=== PATIENT | female | born 1960 | race Caucasian/White ===

== ENCOUNTER 2016-06-12 19:21 | Emergency (ER) ==
[2016-06-12 19:24] VITALS: BP 131/87; TEMP 99; BMI 28.1
[2016-06-12] MEDS ORDERED: DECADRON 4 MG/ML SDV IM STA (19:45)
[2016-06-12] MEDS ORDERED: DUONEB NEB STA (19:45)
--- NOTE | 2016-06-12 19:49 | ED.PDOC ---
General ED Provider: Dr. ADRIANNE WATERMAN Chief Complaint: Cough Stated Complaint: Been coughing congestion, getting lots of sputum, no fever or chills. no chest pain, not short of breath,. Called PMD and was started on cough syrup and zithromycin, not helping much, Time Seen by Physician: 19:46 Mode of Arrival: Walk-In Information Source: Patient Primary Care Provider: RONNY DEGROOT Nursing and Triage Documentation Reviewed and Agree: Yes Respiratory Complaint Exam - Respiratory Complaint/Exam Symptoms Are: Still present Timing: Constant Initial Severity: Mild Current Severity: Mild Location: Chest Character: Reports: Productive cough Aggravating: Reports: URI Alleviating: Reports: None Associated Signs and Symptoms: Reports: URI, Nasal congestion, Hoarseness, Sinus discomfort, Sore throat. Denies: Rapid breathing, Dyspnea, Fever, Chills , Chest pain, Pleuritic chest pain, Wheezing, Hemoptysis, Dizziness, Calf pain, Calf swelling, Edema, Vomiting, Weight loss, Decreased oral intake, Increased thirst, Increased appetite, Increased urination Related History: Reports: Similar episode History of Healthcare-Acquired Pneumonia: No Related Surgical History: Reports: None Pulmonary Embolism Risk Factors: None Cardiac Risk Factors: Reports: None Pseudomonas Risk Factors: Reports: None Tuberculosis Risk Factors: Reports: None Status Asthmaticus Risk Factors: Reports: None Home Oxygen Use: No Recent Stress Test: No Recent Echo/LV Function: No Current Antibiotic Use: No Current Asthma Medication Use: No Respiratory Distress: None Inadequate Respiratory Effort: No Dysphagia Present: No Stridor Present: No JVD Present: No Accessory Muscle Use: No Retractions: Not Present Diminished Breath Sounds: No Sinus Tenderness: None Grunting Respirations: No Kussmaul Respirations: No Differential Diagnoses: Pneumonia, Bronchitis, URI Review of Systems - Review Of Systems Constitutional: Reports: Malaise Eyes: Reports: No symptoms Ears, Nose, Mouth, Throat: Reports: Nose discharge, Throat pain Respiratory: Reports: Cough Cardiac: Reports: No symptoms GI: Reports: No symptoms : Reports: No symptoms Musculoskeletal: Reports: No symptoms Skin: Reports: No symptoms Neurological: Reports: No symptoms Endocrine: Reports: No symptoms Hematologic/Lymphatic: Reports: No symptoms All Other Systems: Reviewed and Negative Past Medical History - Past Medical History Previously Healthy: No Endocrine: Reports: Dyslipidemia Cardiovascular: Reports: Hypertension Respiratory: Reports: None Hematological: Reports: None Gastrointestinal: Reports: None Genitourinary: Reports: None Neuro/Psych: Reports: None Musculoskeletal: Reports: None Cancer: Reports: None Last Menstrual Period: none - Surgical History General Surgical History: Reports: Other (hemorrhoidectomy.) - Family History Family History: Reports: None - Social History Smoking Status: Never smoker Hx Substance Use: No Alcohol Screening: Occasionally Physical Exam - Physical Exam Appearance: Ill-appearing, Obese Ill-appearing: Mild Eyes: SHASHA, EOMI, Conjunctiva clear ENT: Ears normal, Nose normal, Oropharynx normal Respiratory: Airway patent, Breath sounds clear, Breath sounds equal, Respirations nonlabored Cardiovascular: RRR, Pulses normal, No rub, No murmur GI/: Soft, Nontender, No masses, Bowel sounds normal, No Organomegaly Musculoskeletal: Normal strength, ROM intact, No edema, No calf tenderness Skin: Warm, Dry, Normal color Neurological: Sensation intact, Motor intact, Reflexes intact, Cranial nerves intact, Alert, Oriented Psychiatric: Affect appropriate, Mood appropriate Interpretation - Radiology Interpretation Radiology Interpretation By: ED Physician Radiology Results: Negative Exam Interpreted: CXR Re-Evaluation - Re-Evaluation Time of Re-Evaluation: 20:45 Status: Improved Critical Care Note - Critical Care Note Total Time (mins): 0 Course - Course Orders, Labs, Meds: Lab Review 06/12/16 19:55 Influenza A (Rapid) Negative Influenza B (Rapid) Negative Orders Category Date Time Status NEBULIZER TREATMENT Stat CARDIO 06/12/16 19:46 Ordered MOLECULAR GROUP A STREP Stat LAB 06/12/16 19:55 Results RAPID FLU A/B Stat LAB 06/12/16 19:55 Completed STREP SCREEN Stat LAB 06/12/16 19:55 Results Dexamethasone 4 mg/ml Inj [Decadron 4 mg/ml Sdv] MEDS 06/12/16 19:45 Discontinued 4 mg IM ONCE STA Ipratropium/Albuterol Neb [Duoneb] MEDS 06/12/16 19:45 Discontinued 1 vial NEB ONCE STA CHEST, 2 VIEWS PA & LAT Stat RADS 06/12/16 19:45 Taken Medications Discontinued Medications Generic Name Dose Route Start Last Admin Trade Name Freq PRN Reason Stop Dose Admin Albuterol/Ipratropium 1 vial 06/12/16 19:45 06/12/16 20:09 Duoneb NEB 06/12/16 19:46 1 vial ONCE STA Administration Dexamethasone Sodium Phosphate 4 mg 06/12/16 19:45 06/12/16 19:58 Decadron 4 Mg/Ml Sdv IM 06/12/16 19:46 4 mg ONCE STA Administration Vital Signs: Temp Pulse Resp BP Pulse Ox 06/12/16 19:21 99.0 F 88 20 131/87 96 Departure - Departure Time of Disposition: 20:45 Disposition: HOME SELF-CARE Discharge Problem: URTI (acute upper respiratory infection) Instructions: Upper Respiratory Infection (ED) Condition: Stable Pt referred to PMD for follow-up: Yes Additional Instructions: INCREASE HYDRATION PROBIOTICS STOP Z PACK VOICE REST Prescriptions: Cephalexin [Keflex] 500 mg PO Q12HR #20 capsule Ipratropium/Albuterol Neb [Duoneb] 1 vial NEB RTQ8H #60 vial.neb Prednisone 10 mg PO BIDWM #14 tablet Allergies/Adverse Reactions: Allergies No Known Allergies Allergy (Verified 06/12/16 19:24) Home Medications: Ambulatory Orders Pravastatin Sodium [Pravachol] 40 mg PO DAILY 10/15/13 Bisoprolol Fumarate [Zebeta] 5 mg PO DAILY 06/12/16 Cephalexin [Keflex] 500 mg PO Q12HR #20 capsule 06/12/16 Ipratropium/Albuterol Neb [Duoneb] 1 vial NEB RTQ8H #60 vial.neb 06/12/16 Prednisone 10 mg PO BIDWM #14 tablet 06/12/16 Disposition Discussed With: Patient, Family
[2016-06-12 20:15] LABS: FLU INTERNAL QC INTERNAL QC VALID; RAPID FLU A NEGATIVE (NEGATIVE); RAPID FLU B NEGATIVE (NEGATIVE)
--- NOTE | 2016-06-13 07:34 | DI ---
EXAM: Chest two view, frontal and lateral views. HISTORY: Cough. COMPARISON: None available. FINDINGS: The heart size is normal. There is no pulmonary vascular congestion. The lungs are jose r. No pleural effusion or pneumothorax is seen. No acute osseous abnormality identified. Suspect old left clavicular shaft fracture IMPRESSION: No acute cardiopulmonary process.
== END 2016-06-12 20:53 | disposition home or self-care (01) ==
LOC: ED 19:21
DX: J06.9 Acute upper respiratory infection, unspecified (principal)
CPT/HCPCS: 87651; 87804; 87880; 94640; 96372; 99283

== ENCOUNTER 2017-07-15 07:14 | Day surgery (SDC) ==
[2017-07-15] MEDS ORDERED: LIDOCAINE 1% 20 ML MDV ID STA (07:38)
[2017-07-15] MEDS ORDERED: VERSED ONE (10:13)
[2017-07-15] MEDS ORDERED: DIPRIVAN 20 ML VIAL IVP ONE (10:13)
[2017-07-15] MEDS ORDERED: LIDOCAINE HCL 2% LUER-JET ONE (10:13)
[2017-07-15 12:49] VITALS: BP 118/62; TEMP 97.5
--- NOTE | 2017-07-16 11:47 | OP ---
INDICATIONS FOR PROCEDURE:57 year old female presents with complaining of intermittent dysphagia to solid foods. She is also scheduled for colonoscopy screening examination with a family history of colon polyps involving two primary relatives and second degree relative with colon cancer at an elderly age. MEDICATIONS: SEE ANESTHESIA NOTES. PROCEDURE: 1. ENDOSCOPY/GASTRIC BIOPSY/ESOPHAGEAL BIOPSY/HUNGARIAN DILATATION. 2. COLONOSCOPY/SNARE POLYPECTOMY/SALINE INJECTION/ ENDOCLIP THERAPY REPORT: The risks, benefits, alternatives and limitations were discussed in detail with the patient. Informed consent was obtained. After adequate sedation was achieved, the video endoscope was introduced in the posterior pharynx and esophagus under direct vision and easily advanced down to the second portion of the duodenum. I then slowly withdrew. The duodenal mucosa appeared unremarkable as did the duodenal bulb. The Antrum body is relatively unremarkable. The scope was retroflexed to look at the cardia and fundus which revealed a few small polyps about 4-5mm in size these appeared to be fundic type polyps. I biopsied them for histological review. The scope was anteflexed and withdrawn back through the esophagus at the GE junction there was small mucosal circumferential stricture. It was causing mild lumen narrowing. The biopsied for histological review. The remaining esophagus appeared unremarkable. I advanced the scope back down the gastric lumen I placed the guide wire and withdrew the scope. Over the guidewire I easily advanced a 54 [place]ian [place] Dilator. The patient tolerated the procedure well with stable vital signs and pulse oximetry throughout. The patient's bed was turn and digital rectal exam revealed good tones and masses. Colonoscope was introduced in the rectal and was advanced under direct visual guidance to the cecum. The cecum was identified by the appendiceal orifice and IC valve. At the cecum there was two polyps one was slightly raised and about 6mm in size the other one was flat and had a mucosa cap it was about 12-14mm in size. I removed the small by snare technique and it was retrieved. On the large flat polyp I injected saline underneath to raise it. I then removed this in one piece using a Hexagonal snare. This polyp was successfully retrieved in one pieced. I then closed the polypectomy sight with 3 Endoclips. I withdrew the scope in a circumferential manner and examined the mucosa quite carefully. I was able to retroflex the scope in the right and the left colon to increase visualization. There was a polyp at the hepatic flexure about 7mm size that was removed by snare technique. There was small mouth diverticuli scattered through out the sigmoid colon. No other abnormalities were noted including on retroflex view of the anal canal. The prep was good and the withdraw time was 25 minutes and 17 seconds. The patient tolerated the procedure well with stable vital signs and pulse oximetry throughout. IMPRESSION: 1. Few fundic type polyps present in the gastric lumen 2. Distal esophageal stricture, biopsied and then dilated as above 3. Three colon polyps removed as above 4. Sigmoid diverticulosis RECOMMENDATIONS: 1. Await gastric polyp pathology to confirm benign nature 2. Strict reflux precautions 3. Cut and chew food well 4. Await colon polyp pathology and if everything is benign I suggest repeat colonoscopy examination again no later than 3 years or sooner if there are signs and symptoms to indicate otherwise 5. High fiber diet 6. We will have her come back to the office as needed. 7. She was given phone numbers and mean of contact for complications and the patient was given instructions of signs and symptoms to watch for for post procedure complications. CC: Dr. David CABRAL
== END 2017-07-15 12:00 | disposition home or self-care (01) ==
LOC: SURG 07:14
PROVIDERS: ATTEND Internal Medicine Gastroenterology
DX: Z12.11 Encounter for screening for malignant neoplasm of colon (principal); Z83.71 Family history of colonic polyps; Z80.0 Family history of malignant neoplasm of digestive organs; D12.0 Benign neoplasm of cecum; D12.3 Benign neoplasm of transverse colon; D13.1 Benign neoplasm of stomach; D13.0 Benign neoplasm of esophagus; R13.10 Dysphagia, unspecified; K22.2 Esophageal obstruction; K57.30 Diverticulosis of large intestine without perforation or abscess without bleeding

== ENCOUNTER 2018-08-03 10:38 | Outpatient (CLI) ==
--- NOTE | 2018-08-03 11:46 | DI ---
EXAM: Three views of the left shoulder. History: Left shoulder pain. Findings: No acute fracture or dislocation. Old healed fracture deformity of the left clavicle. Migdalia int spaces are preserved. Impression: No acute osseous abnormality
--- NOTE | 2018-08-03 11:52 | DI ---
EXAM: Five views of the cervical spine. History: Cervical neck pain. Findings: No acute fracture or subluxation of the cervical spine. Reversal of the normal cervical l ordosis. No prevertebral soft tissue swelling. Predental space is not widened. Moderate to severe disc space narrowing at C5-6 and C6-7 with endplate sclerosis and osteophyte formation. Mild disc sp caitlin narrowing seen elsewhere. The oblique images demonstrate multilevel bilateral bony neural forami nal narrowing secondary to uncovertebral and facet hypertrophy and most significant on the left at C3 -4. Impression: 1. No acute osseous abnormality of the cervical spine. 2. Degenerative changes
--- NOTE | 2018-08-03 11:56 | DI ---
EXAM: Three views of the right shoulder. History: Right shoulder pain. Findings: No acute fracture or dislocation. No abnormal calcifications or radiopaque foreign bodies . Joint spaces are preserved. Impression: Unremarkable exam
== END 2018-08-03 10:39 | disposition home or self-care (01) ==
LOC: RAD 10:38
PROVIDERS: ATTEND Internal Medicine
DX: M25.511 Pain in right shoulder (principal); M25.512 Pain in left shoulder; M54.2 Cervicalgia

== ENCOUNTER 2018-08-04 08:00 | Outpatient (RCR) ==
--- NOTE | 2018-07-14 08:41 | RS.OPPTEV2 ---
Date of Note: 07/13/18 Visit #: 1 Number of visits approved by Insurance: 20 visits Date of Evaluation: 07/13/18 Payer Source: Insurance Date of Onset/Injury/Change in Status: 05/27/18 Surgery Performed?: Yes (R peroneal tendon repair, superficial peroneal nerve release) Treatment Diagnosis: R peroneal tendon repair and peroneal nerve release, L shld pain related History of Condition/Mechanism of Injury:: pt reports her pain began last summer and she went through therapy and wore a boot, pt then underwent R peroneal tendon repair, superficial peroneal nerve release on 05/27/18. pt with L shld pain related to use of crutches. Prior Level of Function.....Patient was independent with: ADL's, Self Care, Caregiving, Ambulation/Mobility, Community Integration/Access Level of Function: prior to surgery pt was independent with amb as well as ADL's Functional Limitations: Sleep, Standing, Squatting, Ambulation, Community Access /Integration Current Subjective/complaints:: pt reports she got her cast off last week and now is in boot and WBAT. She reports MD told her for the goal to be walking without boot when she returns to MD 09/07/18. Treatment Side (optional): Right (ankle, L shld) *Precautions: n/a Medical History Medical History: Hypertension Surgical History Comments:: L clavicle fx s/p 3 surgeries to repair 08/2012 Smoking Status: Never smoker Hx Home Medications: pravachol, zebeta, tylenol Patient's Goals: be able to return to active lifestyle: hiking, riding horses Pain Assessment - Pain Description Pain Location: R ankle Pain Description: Aching Current Pain Intensity: 1 at rest, increases to 4-5/10 with ROM Other Comments regarding Pain:: L shld pain 4-5/10 with ROM Functional Outcome Measure LE Functional Scale: 24 - G Codes & Severity Modifier G Codes & Modifier: n/a Source of G Code score: n/a Observation - Observation Inspection: pt with edema RLE especially at R lat malleolus with bruising noted at r lat ankle Posture: Forward Head, Rounded Shoulders Handedness: Right Girth Measurement Lower: R LE: forefoot 24cm, ankle 25.7cm, 10 cm above ankle 28.8cm. L LE: forefoot 23.3cm, ankle 25,2cm, 10 cm above ankle 27.2cm Gait - Gait Pattern General Gait Pattern Observation: Antalgic Gait Gait Comments: pt amb with antalgic gait pattern due to pain R ankle. General Range of Motion: RUE WFL's. LUE WFL's with pain with shld ext and abd. LLE WFL 's. RLE WFL's except ankle Shoulder ROM: Bilaterally WFL's Shoulder Muscle Strength: Right WFL's - Left Shoulder ROM Comments: ROM L shld WFL's with pain with shld ext as well as abd. - Left Shoulder Strength Left Shoulder Flexion: 4+ Good + Left Shoulder Extension: 4 Good Left Shoulder Abduction: 4 Good Left Shoulder Adduction: 4+ Good + Left Shoulder External Rotation: 4 Good Left Shoulder Internal Rotation: 4 Good - Special Tests Shoulder Empty Can (Supraspinatus) Test: Negative Left Shoulder Speed's Sign Test: Negative Left Shoulder Drop Arm Test: Negative Left Comments: pt with tenderness to palpation in area of L biceps insertion Ankle ROM: Left WFL's Ankle Muscle Strength: Left WFL's - Right Ankle ROM Right DF with Knee extension: 6 Right Plantarflexion: 38 Right Eversion: 16 Right Inversion: 10 Right Ankle/Foot ROM Limitations: Soft Tissue Tightness, Muscle Weakness, Pain Comments: pt with pain with R ankle ROM. - Right Ankle Strength Right Dorsiflexion: 3- Fair- Right Plantarflexion: 3- Fair- Right Eversion: 3- Fair- Right Inversion: 3- Fair- Palpation Palpation Findings: Tenderness Comments:: pt with tenderness noted at R lat ankle as well as tenderness to palpation in area of L biceps tendon insertion. Sensation - Sensation Right Upper Extremity: Intact/Normal Left Upper Extremity: Intact/Normal Right Lower Extremity: Impaired Left Lower Extremity: Intact/Normal Comments: pt with numbness and tingling R lat ankle in area of incisions Balance - Sitting Balance Static Sitting Balance: Normal Dynamic Sitting Balance: Normal - Standing Balance Static Standing Balance: Good Dynamic Standing Balance: Good Interventions - Exercise/Activities/Manual Therapy Exercises/Activities: pt performed hamstring stretches RLE, heel cord stretching , isometric R ankle DF, PF, inversion, eversion, Manual Therapy: pt received retrograde massage R ankle. HOME EXERCISE PROGRAM: pt given written HEP including for shld: corner stretch, scapular retraction, upper trap stretch. Then for ankle: isometric inversion, eversion, DF, PF, hamstring stretch, heel cord stretch - Charges Timed Code Treatment Minutes: 52 Total Treatment Time: 61 Procedures billed for this date of service:: sharonda estrada, ex EVALUATION COMPLEXITY LEVEL EVALUATION COMPLEXITY LEVEL: HISTORY: Low (HTN, tendon repair), EXAM OF BODY SYSTEMS: Medium (pain, ROM, strength, gait), CLINICAL PRESENTATION: Low, CLINICAL DECISION MAKING: Low Assessment Assessment: pt presents with edema R ankle, pain in R ankle, L shld, pt with decreased strength/ROM R ankle and L shld, decreased sensation R lat ankle. Feel pt would benefit from skilled PT for therex for strengthening, balance as well as modalities to decrease edema. Patient Education: Home Exercise Program, Education of Plan of Care Rehab Potential: Good Short Term Goals Goal #1: pt rate pain R ankle <4/10 with activity Goal to be met by: 08/03/18 Goal #2: Improve R ankle ROM DF 10, PF 45 Goal to be met by: 08/03/18 Goal #3: Decreased edema R ankle to equal to L Goal to be met by: 08/03/18 Goal #4: Improve strength R ankle DF 3 to 3+/5 Goal to be met by: 08/03/18 Half-Way Goals Goal #1: pt independent with initial HEP Goal to be met by: 08/24/18 Goal #2: pt amb without boot without AD community distances without LOB Goal to be met by: 08/24/18 Goal #3: Improve R ankle ROM WFL's Goal to be met by: 08/24/18 Goal #4: Improve L shld strength 4 to 4+/5 with less pain Goal to be met by: 08/24/18 Plan - Treatment to be Provided Procedures: Therapeutic Exercises, Therapeutic Activity, Gait Training, Manual Therapy, Massage, Patient Education Modalities: Electrical Stimulation, Ultrasound/Phonophoresis, Cryotherapy, Hot Packs - Treatment Plan Frequency: 2 X week Duration: 6 weeks Dates of Half-Way Goals: 08/24/18 Expiration date of current Insurance Approval:: n/a pt does have 20 visits max for year - Treatment Code (1) Right ankle pain Code(s): M25.571 - PAIN IN RIGHT ANKLE AND JOINTS OF RIGHT FOOT Qualifiers: Chronicity: chronic Qualified Code(s): M25.571 - Pain in right ankle and joints of right foot; G89.29 - Other chronic pain (2) Orthopedic aftercare Code(s): Z47.89 - ENCOUNTER FOR OTHER ORTHOPEDIC AFTERCARE (3) Effusion of ankle joint, right Code(s): M25.471 - EFFUSION, RIGHT ANKLE (4) Joint stiffness of right ankle and/or foot Code(s): [id number] - (5) Left shoulder pain Code(s): M25.512 - PAIN IN LEFT SHOULDER Qualifiers: Chronicity: chronic Qualified Code(s): M25.512 - Pain in left shoulder; G89.29 - Other chronic pain
--- NOTE | 2018-07-16 16:17 | RS.OPPTDN ---
Subjective Date of Note: 07/16/18 Visit #: 2 Number of visits approved by Insurance: NA Date of Evaluation: 07/13/18 Payer Source: Insurance Treatment Diagnosis: R peroneal tendon repair and peroneal nerve release, L shld pain related Current Subjective/complaints:: Patient reports swelling and stiffness in the right ankle. Reports left shoulder is sore. Following treatment patient reports increased ankle flexibility and left shoulder pain is less. *Precautions: n/a Pain Assessment - Pain Description Pain Location: Right ankle, Left shoulder Pain Description: Dull, Aching Pain Description: soreness Current Pain Intensity: low - Treatment Modality: Electrical Stim Unattended Parameters/Method Applied: [id number] HVGC to 120 p.v. with 4 small pads to the right ankle with HP prior to MT. Patient Position: Supine - Treatment Modality: Ultrasound Parameters/Method Applied: [id number] at 1.5w/cm2 to the left shoulder joint and upper arm. Patient Position: Supine - Heat/Cryotherapy Treatment: Hot Pack (to right ankle with Estim ) Interventions - Exercise/Activities/Manual Therapy Exercises/Activities: pt performed hamstring stretches RLE, heel cord stretching , isometric R ankle DF, PF, inversion, eversion. PROM of the left shoulder. Total minutes of Exercise: 5mins Manual Therapy: [id number] Retrograde massage to right ankle and lower leg. Passive stretch to the heel cords. Myofascial stretching of the plantar fascitis. Total minutes of Manual Therapy: 15mins HOME EXERCISE PROGRAM: pt given written HEP including for shld: corner stretch, scapular retraction, upper trap stretch. Then for ankle: isometric inversion, eversion, DF, PF, hamstring stretch, heel cord stretch - Charges Timed Code Treatment Minutes: 30mins Total Treatment Time: 50mins Procedures billed for this date of service:: HP, Estim unattended, US, MT Assessment: Patient responds well to addition of modalities with reports of increased flexibility and decreased pain. Patient Education: Body/Joint mechanics, Home Exercise Program Patient demonstrates compliance with HEP?: Yes Short Term Goals Goal #1: pt rate pain R ankle <4/10 with activity Goal to be met by: 08/03/18 Goal #2: Improve R ankle ROM DF 10, PF 45 Goal to be met by: 08/03/18 Progress towards Goal:: Progressing Goal #3: Decreased edema R ankle to equal to L Goal to be met by: 08/03/18 Goal #4: Improve strength R ankle DF 3 to 3+/5 Goal to be met by: 08/03/18 Sliver Lapper Goals Goal #1: pt independent with initial HEP Goal to be met by: 08/24/18 Progress towards goal: Progressing Goal #2: pt amb without boot without AD community distances without LOB Goal to be met by: 08/24/18 Goal #3: Improve R ankle ROM WFL's Goal to be met by: 08/24/18 Goal #4: Improve L shld strength 4 to 4+/5 with less pain Goal to be met by: 08/24/18 Plan Dates of Sliver Lapper Goals: 08/24/18 Expiration date of current Insurance Approval:: 08/24/18 PLAN: Continue modalities and increase therapeutic exercise to return to PLOF.
--- NOTE | 2018-07-21 14:32 | RS.OPPTDN ---
Subjective Date of Note: 07/21/18 Visit #: 3 Number of visits approved by Insurance: 20 visit max Date of Evaluation: 07/13/18 Payer Source: Insurance Treatment Diagnosis: R peroneal tendon repair and peroneal nerve release, L shld pain related Current Subjective/complaints:: Patient reports increased soreness right foot and ankle following last session, but states she is gaining flexibility and swelling is decreasing. Reports left shoulder felt much better following US. *Precautions: n/a Pain Assessment - Pain Description Pain Location: Right foot/ankle and left shoulder Current Pain Intensity: Right foot low, left shoulder mild soreness - Treatment Modality: Electrical Stim Unattended Parameters/Method Applied: [id number] HVGC to 160p.v. with 4 small pads to the right ankle with HP prior to EX. Patient Position: Supine - Treatment Modality: Ultrasound Parameters/Method Applied: [id number] at 1.5w/cm2 to the left shoulder and upper arm. - Heat/Cryotherapy Treatment: Hot Pack (with Estim ) Interventions - Exercise/Activities/Manual Therapy Exercises/Activities: x3mins PROM to the left shoulder and isometric IR and ER. Total minutes of Exercise: 3 Manual Therapy: [id number] Retrograde massage to right ankle and lower leg. Passive stretch to the heel cords. Myofascial stretching of the plantar fascitis. Total minutes of Manual Therapy: 17mins HOME EXERCISE PROGRAM: pt given written HEP including for shld: corner stretch, scapular retraction, upper trap stretch. Then for ankle: isometric inversion, eversion, DF, PF, hamstring stretch, heel cord stretch - Charges Timed Code Treatment Minutes: 30mins Total Treatment Time: 50mins Procedures billed for this date of service:: HP, Estim unattended, US, MT Assessment: Patient responding well to treatment with reports of decreased swelling and increased flexibility. Patient Education: Body/Joint mechanics, Home Exercise Program, Activity Modification Comments: Discussion of HEP, weaning from walking boot, and soaking in Epsom salt and warm water. Patient demonstrates compliance with HEP?: Yes Short Term Goals Goal #1: pt rate pain R ankle <4/10 with activity Goal to be met by: 08/03/18 Goal #2: Improve R ankle ROM DF 10, PF 45 Goal to be met by: 08/03/18 Progress towards Goal:: Progressing Goal #3: Decreased edema R ankle to equal to L Goal to be met by: 08/03/18 Goal #4: Improve strength R ankle DF 3 to 3+/5 Goal to be met by: 08/03/18 Custodial Goals Goal #1: pt independent with initial HEP Goal to be met by: 08/24/18 Progress towards goal: Progressing Goal #2: pt amb without boot without AD community distances without LOB Goal to be met by: 08/24/18 Goal #3: Improve R ankle ROM WFL's Goal to be met by: 08/24/18 Goal #4: Improve L shld strength 4 to 4+/5 with less pain Goal to be met by: 08/24/18 Plan Dates of Custodial Goals: 08/24/18 Expiration date of current Insurance Approval:: 08/24/18 PLAN: Continue modalities and progress exercise to reduce pain and swelling and increase ROM.
--- NOTE | 2018-07-27 09:30 | RS.OPPTDN ---
Subjective Date of Note: 07/24/18 Visit #: 4 Number of visits approved by Insurance: 20 visit max Date of Evaluation: 07/13/18 Payer Source: Insurance Treatment Diagnosis: R peroneal tendon repair and peroneal nerve release, L shld pain related Current Subjective/complaints:: Patient reports ROM of the right ankle seems better. States left shoulder in better, but sore due to slight overuse. States US and ROM exercise are helping. *Precautions: n/a Pain Assessment - Pain Description Pain Location: Right foot/ankle, left shoulder Pain Description: Tightness, Aching Current Pain Intensity: mild - Treatment Modality: Electrical Stim Unattended Parameters/Method Applied: [id number] HVGC to 170p.v. with 4 pads to the right ankle with HP prior to EX and MT. Patient Position: Supine - Treatment Modality: Ultrasound Parameters/Method Applied: [id number] at 1.5w/cm2 to the left shouulder joint prior to EX. Patient Position: Supine - Heat/Cryotherapy Treatment: Hot Pack (with Estim to the right ankle ) Interventions - Exercise/Activities/Manual Therapy Exercises/Activities: [id number] PROM to the left shoulder and isometric flex, ext , add, abd, IR and ER. Yellow theraband for resisted right ankle df, pf, inversion, and eversion. Isometric right ankle df, inversion, and eversion. Total minutes of Exercise: 11mins Manual Therapy: [id number] Retrograde massage to right ankle and lower leg. Passive stretch to the heel cords. Myofascial stretching of the plantar fascitis. Total minutes of Manual Therapy: 15mins HOME EXERCISE PROGRAM: pt given written HEP including for shld: corner stretch, scapular retraction, upper trap stretch. Then for ankle: isometric inversion, eversion, DF, PF, hamstring stretch, heel cord stretch - Charges Timed Code Treatment Minutes: 36mins Total Treatment Time: 56mins Procedures billed for this date of service:: HP, Estim unattended, MT, EX Assessment: Patient progressing with exercise and with reports of reduction in pain. Patient Education: Home Exercise Program Patient demonstrates compliance with HEP?: Yes Short Term Goals Goal #1: pt rate pain R ankle <4/10 with activity Goal to be met by: 08/03/18 Progress towards Goal:: Progressing Goal #2: Improve R ankle ROM DF 10, PF 45 Goal to be met by: 08/03/18 Progress towards Goal:: Progressing Goal #3: Decreased edema R ankle to equal to L Goal to be met by: 08/03/18 Progress towards Goal:: Progressing Goal #4: Improve strength R ankle DF 3 to 3+/5 Goal to be met by: 08/03/18 Side Stitching Machine Operator Goals Goal #1: pt independent with initial HEP Goal to be met by: 08/24/18 Progress towards goal: Progressing Goal #2: pt amb without boot without AD community distances without LOB Goal to be met by: 08/24/18 Goal #3: Improve R ankle ROM WFL's Goal to be met by: 08/24/18 Goal #4: Improve L shld strength 4 to 4+/5 with less pain Goal to be met by: 08/24/18 Plan Dates of Side Stitching Machine Operator Goals: 08/24/18 Expiration date of current Insurance Approval:: 08/24/18 PLAN: Continue modalities, manual therapy, and progress exercise.
--- NOTE | 2018-07-28 14:19 | RS.OPPTDN ---
Subjective Date of Note: 07/28/18 Visit #: 5 Number of visits approved by Insurance: 20 visit max Date of Evaluation: 07/13/18 Payer Source: Insurance Treatment Diagnosis: R peroneal tendon repair and peroneal nerve release, L shld pain related Current Subjective/complaints:: Patient reports improvement in right ankle ROM and in swelling. Reports walking in her home without boot. States left shoulder pain is mainily at superior shoulder joint, and is also improving. *Precautions: n/a Pain Assessment - Pain Description Pain Location: right ankle, lelf shoulder Current Pain Intensity: mild - Treatment Modality: Ultrasound Parameters/Method Applied: [id number] at 1.5w/cm2 to the left shoulder prior to EX. Patient Position: Supine - Treatment Modality: Electrical Stim Unattended Parameters/Method Applied: [id number] HVGC to 170p.v. with 4 small pads to the right ankle with HP prior to EX. Patient Position: Supine - Heat/Cryotherapy Treatment: Hot Pack (to right ankle with Estim) Interventions - Exercise/Activities/Manual Therapy Exercises/Activities: [id number] PROM to the left shoulder and began red theraband for resisted bilateral shoulder ER. Red theraband for resisted right ankle df, pf, inversion, and eversion. Isometric right ankle df, inversion, and eversion. Total minutes of Exercise: 13mins Manual Therapy: [id number] mins Retrograde massage to right ankle and lower leg. Passive stretch to the heel cords. Myofascial stretching of the plantar fascitis. Total minutes of Manual Therapy: 10mins HOME EXERCISE PROGRAM: pt given written HEP including for shld: corner stretch, scapular retraction, upper trap stretch. Then for ankle: isometric inversion, eversion, DF, PF, hamstring stretch, heel cord stretch - Charges Timed Code Treatment Minutes: 33mins Total Treatment Time: 53mins Procedures billed for this date of service:: HP, Estim unattended, US, EX Assessment: Patient reporting progress with pain, swelling, and ambulation. Patient Education: Home Exercise Program Patient demonstrates compliance with HEP?: Yes Short Term Goals Goal #1: pt rate pain R ankle <4/10 with activity Goal to be met by: 08/03/18 Progress towards Goal:: Progressing Goal #2: Improve R ankle ROM DF 10, PF 45 Goal to be met by: 08/03/18 Progress towards Goal:: Progressing Goal #3: Decreased edema R ankle to equal to L Goal to be met by: 08/03/18 Progress towards Goal:: Progressing Goal #4: Improve strength R ankle DF 3 to 3+/5 Goal to be met by: 08/03/18 Progress towards Goal:: Progressing Track Equipment Operator Goals Goal #1: pt independent with initial HEP Goal to be met by: 08/24/18 Progress towards goal: Progressing Goal #2: pt amb without boot without AD community distances without LOB Goal to be met by: 08/24/18 Progress towards goal: Progressing Goal #3: Improve R ankle ROM WFL's Goal to be met by: 08/24/18 Progress towards goal: Progressing Goal #4: Improve L shld strength 4 to 4+/5 with less pain Goal to be met by: 08/24/18 Plan Dates of Residential Goals: 08/24/18 Expiration date of current Insurance Approval:: 08/24/18 PLAN: Continue modalities and progress exercise at tolerable.
--- NOTE | 2018-07-31 15:10 | RS.OPPTDN ---
Subjective Date of Note: 07/31/18 Visit #: 6 Number of visits approved by Insurance: n/a Date of Evaluation: 07/13/18 Payer Source: Insurance Treatment Diagnosis: R peroneal tendon repair and peroneal nerve release, L shld pain related Current Subjective/complaints:: pt reports that her shld was a bit irritated and painful after getting ultrasound last visit. States she feels her ankle is getting better. She states she is working on not wearing the boot most of the day. *Precautions: n/a Pain Assessment - Pain Description Pain Location: R ankle, L shld Pain Description: Aching Current Pain Intensity: R ankle 4/10, L shld 2/10 - Treatment Modality: Electrical Stim Unattended Parameters/Method Applied: x 20 mins HVGC 180 p.v. with 4 small pads to R ankle Treatment Area: R ankle Patient Position: Supine - Heat/Cryotherapy Treatment: Hot Pack Comments:: with estim R ankle Interventions - Exercise/Activities/Manual Therapy Exercises/Activities: pt received PROM to L shld, R ankle resisted DF, PF, IV, EV with red theraband x 2 sets of 10 reps, isometric R ankle DF/PF , IV/EV 2 sets of 10 reps. Total minutes of Exercise: 22 mins Manual Therapy: pt received retrograde massage to R foot/ankle with stretching to R heel cords as well as myofascial stretching of plantar fascia. Total minutes of Manual Therapy: 9 mins HOME EXERCISE PROGRAM: pt given written HEP including for shld: corner stretch, scapular retraction, upper trap stretch. Then for ankle: isometric inversion, eversion, DF, PF, hamstring stretch, heel cord stretch - Charges Timed Code Treatment Minutes: 31 Total Treatment Time: 55 Procedures billed for this date of service:: estim unattended, HP, EX, manual therapy Assessment: pt with improvement with decreased swelling as well as improved R ankle ROM. L shld continues to be somewhat painful with ROM. Patient Education: Home Exercise Program, Education of Plan of Care Patient demonstrates compliance with HEP?: Yes Short Term Goals Goal #1: pt rate pain R ankle <4/10 with activity Goal to be met by: 08/03/18 Progress towards Goal:: Progressing Goal #2: Improve R ankle ROM DF 10, PF 45 Goal to be met by: 08/03/18 Progress towards Goal:: Progressing Goal #3: Decreased edema R ankle to equal to L Goal to be met by: 08/03/18 Progress towards Goal:: Progressing Goal #4: Improve strength R ankle DF 3 to 3+/5 Goal to be met by: 08/03/18 Progress towards Goal:: Progressing Human Resources Benefits Specialist Goals Goal #1: pt independent with initial HEP Goal to be met by: 08/24/18 Progress towards goal: Progressing Goal #2: pt amb without boot without AD community distances without LOB Goal to be met by: 08/24/18 Progress towards goal: Progressing Goal #3: Improve R ankle ROM WFL's Goal to be met by: 08/24/18 Progress towards goal: Progressing Goal #4: Improve L shld strength 4 to 4+/5 with less pain Goal to be met by: 08/24/18 Plan Dates of Human Resources Benefits Specialist Goals: 08/24/18 Expiration date of current Insurance Approval:: 08/24/18 PLAN: plan to continue with therex for strengthening, balance as well as modalities to decrease edema.
--- NOTE | 2018-08-04 12:07 | RS.OPPTDN ---
Subjective Date of Note: 08/04/18 Visit #: 7 Number of visits approved by Insurance: NA Date of Evaluation: 07/13/18 Payer Source: Insurance Treatment Diagnosis: R peroneal tendon repair and peroneal nerve release, L shld pain related Current Subjective/complaints:: Patient reports swelling and joint stiffness is improving. Reports she has discontinued walking boot and is wearing compression socks. Reports discomfort at the superior left shoulder joint is slowly improving. *Precautions: n/a Pain Assessment - Pain Description Pain Location: right ankle, left shoulder joint - Treatment Modality: Electrical Stim Unattended Parameters/Method Applied: [id number] HVGC to 180p.v. with 4 large pads to the right ankle with HP prior to EX. Patient Position: Supine - Treatment Modality: Ultrasound Parameters/Method Applied: [id number] at 1.0w/cm2 to the left shoulder joint and upper arm. - Heat/Cryotherapy Treatment: Hot Pack (with Estim ) Interventions - Exercise/Activities/Manual Therapy Exercises/Activities: PROM to left shoulder and right ankle. Resisted right ankle DF, PF, IV, EV with red theraband. Manually resisted isometric right ankle x4 direction. Passive heelcord stretch. Total minutes of Exercise: [id number] Manual Therapy: pt received retrograde massage to R foot/ankle and lower leg. Myofascial stretching of plantar fascia. Total minutes of Manual Therapy: 7mins HOME EXERCISE PROGRAM: pt given written HEP including for shld: corner stretch, scapular retraction, upper trap stretch. Then for ankle: isometric inversion, eversion, DF, PF, hamstring stretch, heel cord stretch - Charges Timed Code Treatment Minutes: 31mins Total Treatment Time: 51mins Procedures billed for this date of service:: HP, Estim unattended, US, EX Assessment: Patient progressing with reduction in pain and swelling. Reports improvement with ambulation and discharge of walking boot. Patient Education: Home Exercise Program Patient demonstrates compliance with HEP?: Yes Short Term Goals Goal #1: pt rate pain R ankle <4/10 with activity Goal to be met by: 08/03/18 Progress towards Goal:: Progressing Goal #2: Improve R ankle ROM DF 10, PF 45 Goal to be met by: 08/03/18 Progress towards Goal:: Progressing Goal #3: Decreased edema R ankle to equal to L Goal to be met by: 08/03/18 Progress towards Goal:: Progressing Goal #4: Improve strength R ankle DF 3 to 3+/5 Goal to be met by: 08/03/18 Progress towards Goal:: Progressing Shelter Goals Goal #1: pt independent with initial HEP Goal to be met by: 08/24/18 Progress towards goal: Progressing Goal #2: pt amb without boot without AD community distances without LOB Goal to be met by: 08/24/18 Progress towards goal: Met Goal #3: Improve R ankle ROM WFL's Goal to be met by: 08/24/18 Progress towards goal: Progressing Goal #4: Improve L shld strength 4 to 4+/5 with less pain Goal to be met by: 08/24/18 Progress towards goal: Progressing Plan Dates of Forepart Rasper Goals: 08/24/18 Expiration date of current Insurance Approval:: 08/24/18 PLAN: Progress with ROM and strengthening of the right ankle as well as continue treatment to the left shoulder.
== END 2018-08-06 23:59 ==
PROVIDERS: ATTEND Orthopaedic Surgery Foot and Ankle Surgery
DX: Z47.89 Encounter for other orthopedic aftercare (principal)

== ENCOUNTER 2018-08-14 11:00 | Outpatient (RCR) ==
--- NOTE | 2018-08-07 15:43 | RS.OPPTDN ---
Subjective Date of Note: 08/07/18 Visit #: 8 Number of visits approved by Insurance: 20 visit max Date of Evaluation: 07/13/18 Payer Source: Insurance Treatment Diagnosis: R peroneal tendon repair and peroneal nerve release, L shld pain related Current Subjective/complaints:: Patient reports improvement in right ankle swelling and in ROM. States she feels she is walking better, but having pain at the right heel. *Precautions: n/a Pain Assessment - Pain Description Pain Location: right ankle, heel Pain Description: Tightness Current Pain Intensity: mild - Treatment Modality: Electrical Stim Unattended Parameters/Method Applied: [id number] HVGC to 170-180pv 4 pads to the right ankle with HP prior to EX. Patient Position: Supine - Treatment Modality: Ultrasound Parameters/Method Applied: [id number] at 1.5w/cm2 then reduced to pulsed to the left superior shoulder joint. Patient Position: Supine - Heat/Cryotherapy Treatment: Hot Pack (with Estim), Cryotherapy (ended with 5mins ice massage to the right foot planat surface. ) Interventions - Exercise/Activities/Manual Therapy Exercises/Activities: PROM to left shoulder followed by multiple sets of isometric left shoulder IR and ER with arm in different angles of abduction. Resisted right ankle DF, PF, IV, EV with red theraband. Manually resisted isometric right ankle x4 direction. Passive heelcord stretch. Discussed different positions to stretch right heel cords, great toe flexors, and plantar fascia. Total minutes of Exercise: 15mins Manual Therapy: Myofascial stretching of plantar fascia. Total minutes of Manual Therapy: 5mins HOME EXERCISE PROGRAM: pt given written HEP including for shld: corner stretch, scapular retraction, upper trap stretch. Then for ankle: isometric inversion, eversion, DF, PF, hamstring stretch, heel cord stretch - Charges Timed Code Treatment Minutes: 35mins Total Treatment Time: 55mins Procedures billed for this date of service:: HP, Estim unattended, US, EX Assessment: Patient progressing well with strengthening and with gait pattern. Patient Education: Home Exercise Program, Activity Modification Comments: Patient education of benefits of ice massage. Patient demonstrates compliance with HEP?: Yes Short Term Goals Goal #1: pt rate pain R ankle <4/10 with activity Goal to be met by: 08/03/18 Progress towards Goal:: Met Goal #2: Improve R ankle ROM DF 10, PF 45 Goal to be met by: 08/03/18 Progress towards Goal:: Progressing Goal #3: Decreased edema R ankle to equal to L Goal to be met by: 08/03/18 Progress towards Goal:: Progressing Goal #4: Improve strength R ankle DF 3 to 3+/5 Goal to be met by: 08/03/18 Progress towards Goal:: Progressing Digital Advisor Goals Goal #1: pt independent with initial HEP Goal to be met by: 08/24/18 Progress towards goal: Progressing Goal #2: pt amb without boot without AD community distances without LOB Goal to be met by: 08/24/18 Progress towards goal: Met Goal #3: Improve R ankle ROM WFL's Goal to be met by: 08/24/18 Progress towards goal: Progressing Goal #4: Improve L shld strength 4 to 4+/5 with less pain Goal to be met by: 08/24/18 Progress towards goal: Progressing Plan Dates of Digital Advisor Goals: 08/24/18 Expiration date of current Insurance Approval:: 08/24/18 PLAN: Progress with exercise to improve patients functional activity level.
--- NOTE | 2018-08-11 14:10 | RS.OPPTDN ---
Subjective Date of Note: 08/11/18 Visit #: 9 Number of visits approved by Insurance: 30 visit max Date of Evaluation: 07/13/18 Payer Source: Insurance Treatment Diagnosis: R peroneal tendon repair and peroneal nerve release, L shld pain related Current Subjective/complaints:: Patient reports right ankle continues to improve but discomfort at the plantar surface in limiting her walking. States she is consistent with HEP and use of ice. *Precautions: n/a Pain Assessment - Pain Description Pain Location: right ankle, right foot plantar surface - Treatment Modality: Ultrasound Parameters/Method Applied: [id number]. US at 1.0w/cm2 for 7mins and then at Pulsed 1.2w/cm2 for 3mins to the right foot along heel and plantar surface. Patient Position: Supine Interventions - Exercise/Activities/Manual Therapy Exercises/Activities: Discussion of HEP and use of ice/ice bottle on right foot. Heelcord and right plantar fascia stretch during MT. Total minutes of Exercise: 3mins Manual Therapy: [id number] Myofascial stretching of plantar fascia, followed by ice massage. Total minutes of Manual Therapy: 19mins HOME EXERCISE PROGRAM: pt given written HEP including for shld: corner stretch, scapular retraction, upper trap stretch. Then for ankle: isometric inversion, eversion, DF, PF, hamstring stretch, heel cord stretch - Charges Timed Code Treatment Minutes: 34mins Total Treatment Time: 54mins Procedures billed for this date of service:: HP, USCOM, EX Assessment: Patient progressing well with strength and ROM of the right ankle. Heel and plantar fascia pain limit her walking, but are also improving. Patient Education: Home Exercise Program, Home Safety, Activity Modification Patient demonstrates compliance with HEP?: Yes Short Term Goals Goal #1: pt rate pain R ankle <4/10 with activity Goal to be met by: 08/03/18 Progress towards Goal:: Met Goal #2: Improve R ankle ROM DF 10, PF 45 Goal to be met by: 08/03/18 Progress towards Goal:: Progressing Goal #3: Decreased edema R ankle to equal to L Goal to be met by: 08/03/18 Progress towards Goal:: Partially Met Goal #4: Improve strength R ankle DF 3 to 3+/5 Goal to be met by: 08/03/18 Progress towards Goal:: Met Shelter Goals Goal #1: pt independent with initial HEP Goal to be met by: 08/24/18 Progress towards goal: Met Goal #2: pt amb without boot without AD community distances without LOB Goal to be met by: 08/24/18 Progress towards goal: Met Goal #3: Improve R ankle ROM WFL's Goal to be met by: 08/24/18 Progress towards goal: Progressing Goal #4: Improve L shld strength 4 to 4+/5 with less pain Goal to be met by: 08/24/18 Progress towards goal: Progressing Plan Dates of Shelter Goals: 08/24/18 Expiration date of current Insurance Approval:: 08/24/18 PLAN: Progress with strength and ROM to increase ambulation and functional activity level.
--- NOTE | 2018-08-14 15:03 | RS.OPPTDN ---
Subjective Date of Note: 08/14/18 Visit #: 10 Number of visits approved by Insurance: 30 visit max Date of Evaluation: 07/13/18 Payer Source: Insurance Treatment Diagnosis: R peroneal tendon repair and peroneal nerve release, L shld pain related Current Subjective/complaints:: Patient reports right ankle continues to feel stronger and foot/heal pain improving. *Precautions: n/a Pain Assessment - Pain Description Pain Location: right foot and ankle Current Pain Intensity: mild Other Comments regarding Pain:: heel pain mild to mod, but improving - Treatment Modality: Ultrasound Parameters/Method Applied: [id number] at 1.5w/cm2 to the right foot plantar surface prior to EX. Patient Position: Supine - Heat/Cryotherapy Treatment: Hot Pack ([id number] to the right foot and ankle prior to US and MT. Patient in supine. ) Interventions - Exercise/Activities/Manual Therapy Exercises/Activities: Isometrics for right ankle inv, ever, DF, and PF. Heelcord stretching. Total minutes of Exercise: 7mins Manual Therapy: [id number] Myofascial stretching of plantar fascia, ended with ice massage. Total minutes of Manual Therapy: 19mins HOME EXERCISE PROGRAM: pt given written HEP including for shld: corner stretch, scapular retraction, upper trap stretch. Then for ankle: isometric inversion, eversion, DF, PF, hamstring stretch, heel cord stretch - Charges Timed Code Treatment Minutes: 36mins Total Treatment Time: 51mins Procedures billed for this date of service:: HP, US, MT Assessment: Patient continues to report goos response to treatment and appears to be consistently working on HEP. Patient Education: Home Exercise Program Patient demonstrates compliance with HEP?: Yes Short Term Goals Goal #1: pt rate pain R ankle <4/10 with activity Goal to be met by: 08/03/18 Progress towards Goal:: Met Goal #2: Improve R ankle ROM DF 10, PF 45 Goal to be met by: 08/03/18 Progress towards Goal:: Partially Met Goal #3: Decreased edema R ankle to equal to L Goal to be met by: 08/03/18 Progress towards Goal:: Partially Met Goal #4: Improve strength R ankle DF 3 to 3+/5 Goal to be met by: 08/03/18 Progress towards Goal:: Met Residential Care Officer Goals Goal #1: pt independent with initial HEP Goal to be met by: 08/24/18 Progress towards goal: Met Goal #2: pt amb without boot without AD community distances without LOB Goal to be met by: 08/24/18 Progress towards goal: Met Goal #3: Improve R ankle ROM WFL's Goal to be met by: 08/24/18 Progress towards goal: Met Goal #4: Improve L shld strength 4 to 4+/5 with less pain Goal to be met by: 08/24/18 Progress towards goal: Progressing Plan Dates of Fdc Goals: 08/24/18 Expiration date of current Insurance Approval:: 08/24/18 PLAN: Continue modalities, manual therapy, and progressive strengthening to increase patients functional activity level.
--- NOTE | 2018-08-27 08:52 | RS.QUICKDC ---
Discharge from PT Date of Discharge: 08/27/18 Number of Visits: 10 Reason for Discharge: Patient consistently attended therapy and reported progress with right foot/ankle strength and ROM, as well as functional activity level. She asked to hold therapy a few days to make sure she could continue HEP and manage progress independently. She called this department this week to report she was doing well and would continue HEP with discharge at this time. Please refer to last daily note for specifics of treatment and progress with goals. Discharge with HEP.
== END 2018-09-06 23:59 ==
PROVIDERS: ATTEND Orthopaedic Surgery Foot and Ankle Surgery
DX: Z47.89 Encounter for other orthopedic aftercare (principal); M25.571 Pain in right ankle and joints of right foot; M25.471 Effusion, right ankle; M25.512 Pain in left shoulder; G89.29 Other chronic pain

== ENCOUNTER 2018-09-21 09:00 | Outpatient (RCR) ==
--- NOTE | 2018-09-14 14:18 | RS.OPPTEV2 ---
Date of Note: 09/14/18 Visit #: 1 Number of visits approved by Insurance: pending Date of Evaluation: 09/14/18 Payer Source: Insurance Date of Onset/Injury/Change in Status: 05/27/18 Surgery Performed?: Yes (R peroneal tendon repair, superficial peroneal nerve release) Treatment Diagnosis: R ankle and foot pain History of Condition/Mechanism of Injury:: pt then underwent R peroneal tendon repair, superficial peroneal nerve release on 05/27/18. Underwent PT after surgery. pt went to see MD recently and received order for PT. Prior Level of Function.....Patient was independent with: ADL's, Self Care, Caregiving, Ambulation/Mobility, Community Integration/Access Level of Function: pt independent with amb/ADL's Functional Limitations: Sleep, Standing, Squatting, Ambulation, Community Access /Integration Current Subjective/complaints:: pt states she has been doing HEP given to her by PT on last visit. pt states she was walking a mile per day and MD told her she should stop. States MD was upset because she had taken the boot off before 6 weeks, however pt states office told her to wean off of boot. Treatment Side (optional): Right (ankle/foot) *Precautions: n/a Medical History Medical History: Hypertension Surgical History Comments:: L clavicle fx s/p 3 surgeries to repair 08/2012, tendon repair R ankle 05/27/18. Smoking Status: Never smoker Hx Home Medications: pravachol, zebeta, tylenol Patient's Goals: Decrease R ankle/foot pain and return to normal activities. Pain Assessment - Pain Description Pain Location: R heel/arch of foot Pain Description: Burning, Aching, Chronic Current Pain Intensity: 4-5/10 Other Comments regarding Pain:: R ankle at rest 0/10, with inversion/eversion 2/ 10 Functional Outcome Measure LE Functional Scale: 62 - G Codes & Severity Modifier G Codes & Modifier: n/a Source of G Code score: n/a Observation - Observation Posture: Forward Head, Rounded Shoulders Handedness: Right Girth Measurement Lower: R ankle : 23.5cm, forefoot 23.2cm, 10 cm above ankle 27.4cm. L ankle: 23.5cm, forefoot 23cm, 10 cm above ankle 30cm Gait - Gait Pattern Gait Comments: pt amb without antalgic gait pattern with slight decreased heel strike on the RLE. General Range of Motion: BUE WFL's. LLE WFL's. R hip and knee WFL's Muscle Strength: BUE 5/5. LLE 5/5. R hip and knee 5/5 Ankle ROM: Left WFL's Ankle Muscle Strength: Left WFL's - Right Ankle ROM Right DF with Knee extension: 9 Right Plantarflexion: 48 Right Eversion: 20 Right Inversion: 31 Right Ankle/Foot ROM Limitations: Soft Tissue Tightness, Muscle Weakness, Pain - Right Ankle Strength Right Dorsiflexion: 4+ Good + Right Plantarflexion: 4+ Good + Right Eversion: 4+ Good + Right Inversion: 4+ Good + Palpation Palpation Findings: Tenderness Comments:: mild tenderness noted to R lat ankle incision. Sensation - Sensation Right Upper Extremity: Intact/Normal Left Upper Extremity: Intact/Normal Right Lower Extremity: Intact/Normal Left Lower Extremity: Intact/Normal Balance - Sitting Balance Static Sitting Balance: Normal Dynamic Sitting Balance: Normal - Standing Balance Static Standing Balance: Good Dynamic Standing Balance: Good - Treatment Modality: Ultrasound Parameters/Method Applied: 1.5w/cm2 x 7 mins Treatment Area: R plantar surface and heel Patient Position: Sitting Interventions - Exercise/Activities/Manual Therapy Exercises/Activities: pt performed standing heel raises, as well as balance unilateral standing on foam Manual Therapy: n/a. HOME EXERCISE PROGRAM: pt given written HEP including for shld: corner stretch, scapular retraction, upper trap stretch. Then for ankle: isometric inversion, eversion, DF, PF, hamstring stretch, heel cord stretch - Charges Timed Code Treatment Minutes: 52 Total Treatment Time: 61 Procedures billed for this date of service:: eval low, ultrasound EVALUATION COMPLEXITY LEVEL EVALUATION COMPLEXITY LEVEL: HISTORY: Low, EXAM OF BODY SYSTEMS: Medium, CLINICAL PRESENTATION: Low, CLINICAL DECISION MAKING: Low Assessment Assessment: pt presents with decreased strength R LE DF/PF, EV/IV. pt also with decreased ROM R ankle. pt with mild pain in R ankle/foot. Feel pt would benefit from skilled PT for therex for LE stengthening, balance as well as strengthening. Patient Education: Home Exercise Program, Education of Plan of Care Rehab Potential: Good Short Term Goals Goal #1: pt independent with HEP Goal to be met by: 09/25/18 Goal #2: Improve R ankle ROM DF 15, PF 55, Goal to be met by: 09/25/18 Goal #3: Improve R ankle strength DF/PF, IV/EV 5/5 Goal to be met by: 09/25/18 Goal #4: pt rate pain < 4/10 with activity Goal to be met by: 09/25/18 Senior Care Goals Goal #1: pt with ROM WFL's with less pain Goal to be met by: 10/02/18 Goal #2: R ankle ROM WFL's Goal to be met by: 10/02/18 Goal #3: pt able to return to normal daily activities w less pain Goal to be met by: 10/02/18 Goal #4: . 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
--- NOTE | 2018-09-21 11:30 | RS.OPPTDN ---
Subjective Date of Note: 09/21/18 Visit #: 2 Number of visits approved by Insurance: na Date of Evaluation: 09/14/18 Payer Source: Insurance Treatment Diagnosis: R ankle and foot pain Current Subjective/complaints:: Patient reports doing well with HEP. States she feels she can continue progressive strengthening. Reports right foot plantar fascitis is bothering her but getting better. Patient agrees she will work on HEP and contact this department if she needs to attend next week. *Precautions: n/a Pain Assessment - Pain Description Pain Location: right plantar fascia Current Pain Intensity: mild Other Comments regarding Pain:: Reports little to no discomfort right ankle - Treatment Modality: Ultrasound Parameters/Method Applied: [id number] at 1.5w/cm2 to the right foot plantar surface. Patient Position: Sitting Interventions - Exercise/Activities/Manual Therapy Exercises/Activities: Passive ROM of the right ankle and stretching of heel cords. Pt performed standing heel raises. Leg press at 60# for ankle df, 40reps slow pace. Black theraband for resisted pf. Isometric ankle df, pf, inversion, and eversion. Total minutes of Exercise: 15mins Manual Therapy: [id number] Soft tissue massage to the plantar surface of foot and along the heel cords. Myofascial release of the plantar fascia. Total minutes of Manual Therapy: 14mins HOME EXERCISE PROGRAM: pt given written HEP including for shld: corner stretch, scapular retraction, upper trap stretch. Then for ankle: isometric inversion, eversion, DF, PF, hamstring stretch, heel cord stretch - Charges Timed Code Treatment Minutes: 39mins Total Treatment Time: 44mins Procedures billed for this date of service:: EX, US, MT Assessment: Patient consistently working on HEP and feels she can continue. Will reassess progress next week. Patient Education: Body/Joint mechanics, Home Exercise Program Patient demonstrates compliance with HEP?: Yes Short Term Goals Goal #1: pt independent with HEP Goal to be met by: 09/25/18 Progress towards Goal:: Met Goal #2: Improve R ankle ROM DF 15, PF 55, Goal to be met by: 09/25/18 Progress towards Goal:: Progressing Goal #3: Improve R ankle strength DF/PF, IV/EV 5/5 Goal to be met by: 09/25/18 Progress towards Goal:: Progressing Goal #4: pt rate pain < 4/10 with activity Goal to be met by: 09/25/18 Progress towards Goal:: Progressing Care Connector Goals Goal #1: pt with ROM WFL's with less pain Goal to be met by: 10/02/18 Progress towards goal: Progressing Goal #2: R ankle ROM WFL's Goal to be met by: 10/02/18 Progress towards goal: Progressing Goal #3: pt able to return to normal daily activities w less pain Goal to be met by: 10/02/18 Goal #4: . Plan Dates of Care Connector Goals: 10/02/18 Expiration date of current Insurance Approval:: 10/02/28 PLAN: Violetta will assess her progress next week and contact this department if she feels the need to reschedule.
== END 2018-10-06 23:59 ==
PROVIDERS: ATTEND Orthopaedic Surgery Foot and Ankle Surgery
DX: M72.2 Plantar fascial fibromatosis (principal); Z47.89 Encounter for other orthopedic aftercare; M25.571 Pain in right ankle and joints of right foot; G89.29 Other chronic pain

== ENCOUNTER 2019-12-13 10:34 | Observation (INO) ==
[2019-12-13] MEDS ORDERED: TORADOL IM STA (11:02)
[2019-12-13] MEDS ORDERED: SODIUM CHLORIDE 1,000 ML IV STA (11:02)
[2019-12-13 11:22] LABS: HEMATOCRIT 44.6 % (37.0-47.0)
--- NOTE | 2019-12-13 11:57 | CT ---
EXAM: CT Abdomen without contrast. CT Pelvis without contrast. HISTORY: Left costovertebral angle pain, tenderness. COMPARISON: None available. TECHNIQUE: Multiple axial images of the abdomen and pelvis were obtained without intravenous contras t. Images were reformatted in the sagittal and coronal plane. FINDINGS: Please note that evaluation of the abdominal and pelvic structures is limited due to lack of intravenous contrast. Trace pleural effusions noted bilaterally. Degenerative changes present in the spine, greatest at L4-5. The liver is normal. Gallbladder is not well distended. The spleen, pancreas, and adrenal glands ap pear normal. No calcified renal stones, hydronephrosis or perinephric inflammation identified. No ureteral or donal dder calculi are seen. Bladder appears normal. Phleboliths noted in the pelvis. There is no evidence for bowel obstruction. Colonic diverticulosis noted. The appendix is normal. Small fat-containing umbilical hernia noted. No free fluid or free air detected. Atherosclerotic ca lcifications are present. IMPRESSION: 1. No acute abnormality in the abdomen or pelvis.. 2. Diverticulosis. 3. Trace bilateral pleural effusions.
[2019-12-13] MEDS ORDERED: ROBAXIN PO SCH (15:00)
--- NOTE | 2019-12-13 15:24 | ED.PDOC ---
General ED Provider: Dr. ASHLEY HOLLY MD Chief Complaint: Back Pain Stated Complaint: right low back pain x 5 days. also pulse has been low. started new beta-bear med last week Time Seen by Physician: 10:45 Mode of Arrival: Walk-In Information Source: Patient Exam Limitations: No limitations Primary Care Provider: RONNY DEGROOT Nursing and Triage Documentation Reviewed and Agree: Yes Does patient meet sepsis criteria?: No System Inflammatory Response Syndrome: Not Applicable Sepsis Protocol: For patient's 13 years and over: Temp is 96.8 and below OR 101 and greater Pulse >90 BPM Resp >20/minute Acutely Altered Mental Status Are patient's symptoms suggestive of a new infection, such as: -Pneumonia -Skin, Soft Tissue -Endocarditis -UTI -Bone, Joint Infection -Implantable Device -Acute Abdominal Infection -Wound Infection -Meningitis -Blood Stream Catheter Infection -Unknown Musculoskeletal Complaint Exam Back Pain Complaint/Exam Mechanism of Injury: Reports No known trauma Onset/Duration: 5 days ago Symptoms Are: Still present Episodes Lasting: Hours Initial Severity: Moderate Current Severity: Mild Location: Reports Discrete (left lower back ) Character: Reports Dull and Aching Aggravating: Reports Movements Alleviating: Reports Rest Related History: Reports Previous back injury (prior right sciatica.) Focal Tenderness: No Paraspinal Muscle Tenderness: Yes Paraspinal Muscle Spasm: Yes Scoliosis: No Lordosis: No Kyphosis: No Focal Weakness: Present None Focal Sensory Loss: Present None Gait: Present Normal Differential Diagnoses: Herniated Disk, Renal Colic, Strain and Sprain Review of Systems Review Of Systems Constitutional: Reports No symptoms Eyes: Reports No symptoms Ears, Nose, Mouth, Throat: Reports No symptoms Respiratory: Reports No symptoms Cardiac: Reports No symptoms GI: Reports No symptoms : Reports No symptoms Musculoskeletal: Reports Back pain and Muscle pain Skin: Reports No symptoms Neurological: Reports No symptoms Endocrine: Reports No symptoms Hematologic/Lymphatic: Reports No symptoms All Other Systems: Reviewed and Negative FORMERLY [facility] Medical History (Updated 12/13/19 @ 15:26 by IVAN FARRIS RN) H/O: Social History Smoking and tobacco status: Never smoker Female Reproductive History Menstrual Hx Hysterectomy: Yes Hx Tubal Ligation: No Physical Exam Physical Exam Appearance: Reports Well-appearing Pain Distress: Mild Eyes: Reports SHASHA, EOMI and Conjunctiva clear ENT: Reports Ears normal, Nose normal and Oropharynx normal Neck: Supple Respiratory: Reports Airway patent, Breath sounds clear and Breath sounds equal Cardiovascular: Reports RRR and Bradycardia (pt had pulses 0f 36, 42, 47. she was asymptomatic) GI/: Reports Soft, Nontender, No masses, Bowel sounds normal and No Organomegaly Musculoskeletal: Reports Normal strength, ROM intact, No edema, No calf tenderness and Other (minimally tender left upper buttock on deep palpation. ) Skin: Reports Warm, Dry and Normal color Neurological: Reports Sensation intact, Motor intact, Reflexes intact and Cr anial nerves intact Psychiatric: Reports Mood appropriate Interpretation Radiology Interpretation Radiology Interpretation By: Radiologist Radiology Results: Positive (minimal pleural effusions.) Re-Evaluation Re-Evaluation Time of Re-Evaluation: 11:41 Status: Improved Vital Signs Stable: No (bradycardia was persistent.) Pain Level: 1 Appearance: NAD Lungs: Clear Skin: Warm and Dry Neuro: Alert and Oriented X3 CV: RRR Physician Notification Case Discussed Physician Notified: Dr Degroot Time of Notification: 13:20 Endorsed To/Discussed With: Pt was d/w Dr Degroot who will admit the pt to Observation Admit/Transition Orders Entered by ED Provider: Yes Reviewed With: Dr Degroot Admit To: Observation Critical Care Note Critical Care Note Total Time (mins): 0 Course Course Hematology/Chemistry: 12/13/19 11:16 12/13/19 11:16 Orders, Labs, Meds: Lab Review 12/13/19 12/13/19 12/13/19 11:06 11:16 11:16 WBC 6.01 RBC 4.86 Hgb 15.3 Hct 44.6 MCV 91.8 MCH 31.5 H MCHC 34.3 RDW Coeff of Charlie 12.1 Plt Count 182 Immature Gran % (Auto) 0.3 Neut % (Auto) 67.7 Lymph % (Auto) 22.8 [place] % (Auto) 6.3 Eos % (Auto) 2.2 Baso % (Auto) 0.7 Neut # (Auto) 4.1 Lymph # (Auto) 1.4 [place] # (Auto) 0.4 Eos # (Auto) 0.1 Baso # (Auto) 0.0 Immature Gran # (Auto) 0.0 Sodium 136.2 Potassium 4.69 Chloride 103.1 Carbon Dioxide 25.5 Anion Gap 12.29 BUN 17.6 H Creatinine 1.12 Estimated GFR (MDRD) 50.00 BUN/Creatinine Ratio 15.71 Glucose 105.7 Calcium 9.99 Total Bilirubin 0.57 AST 29.2 ALT 23.8 Alkaline Phosphatase 70.2 Troponin I < 0.012 NT-Pro-B Natriuret Pep Total Protein 7.34 Albumin 4.43 Globulin 2.91 Albumin/Globulin Ratio 1.52 Urine Color Yellow Urine Clarity Clear Urine pH 5.5 Ur Specific [place] 1.010 Urine Protein Negative Urine Glucose (UA) Negative Urine Ketones Negative Urine Blood Negative Urine Nitrite Negative Urine Bilirubin Negative Urine Urobilinogen 0.2 Ur Leukocyte Esterase Negative 12/13/19 11:16 WBC RBC Hgb Hct MCV MCH MCHC RDW Coeff of Charlie Plt Count Immature Gran % (Auto) Neut % (Auto) Lymph % (Auto) [place] % (Auto) Eos % (Auto) Baso % (Auto) Neut # (Auto) Lymph # (Auto) [place] # (Auto) Eos # (Auto) Baso # (Auto) Immature Gran # (Auto) Sodium Potassium Chloride Carbon Dioxide Anion Gap BUN Creatinine Estimated GFR (MDRD) BUN/Creatinine Ratio Glucose Calcium Total Bilirubin AST ALT Alkaline Phosphatase Troponin I NT-Pro-B Natriuret Pep 269.000 H Total Protein Albumin Globulin Albumin/Globulin Ratio Urine Color Urine Clarity Urine pH Ur Specific [place] Urine Protein Urine Glucose (UA) Urine Ketones Urine Blood Urine Nitrite Urine Bilirubin Urine Urobilinogen Ur Leukocyte Esterase Orders Category Date Time Status ADMIT OBSERVATION [PLACE PATIENT OBSERVATION] .TO ADMISSION 12/13/19 14:12 Active MEDSURG (MONITORED BED) EKG-(ED ONLY) Stat CARDIO 12/13/19 11:02 Completed EKG-(IP & OP ONLY) DAILY CARDIO 12/14/19 06:00 Ordered EKG-(IP & OP ONLY) DAILY CARDIO 12/15/19 06:00 Ordered OXYGEN Routine CARDIO 12/13/19 14:16 Active ACTIVITY .Up ad Kim CARE 12/13/19 14:12 Active CASE MANAGEMENT CONSULT ONCE CARE 12/13/19 14:13 Active INTAKE & OUTPUT Q8HR CARE 12/13/19 14:13 Active TELEMETRY MONITORING TELE CARE 12/13/19 14:12 Active VITAL SIGNS Q1HR CARE 12/13/19 14:14 Active VITAL SIGNS Q8HR CARE 12/13/19 14:13 Active CARDIAC DIET DIETARY 12/13/19 Dinner Ordered REGULAR DIET DIETARY 12/13/19 Dinner Ordered ED IV/MEDIPORT/POWERPORT .ONCE EMERGENCY 12/13/19 11:02 Active CBC W/ AUTO DIFF DAILY@0600 LAB 12/14/19 06:00 Ordered CBC W/ AUTO DIFF DAILY@0600 LAB 12/15/19 06:00 Ordered CBC W/ AUTO DIFF Stat LAB 12/13/19 11:16 Completed COMPREHENSIVE METABOLIC PANEL DAILY@0600 LAB 12/14/19 06:00 Ordered COMPREHENSIVE METABOLIC PANEL DAILY@0600 LAB 12/15/19 06:00 Ordered COMPREHENSIVE METABOLIC PANEL Stat LAB 12/13/19 11:16 Completed NT-PROBNP Stat LAB 12/13/19 11:16 Completed TROPONIN I Stat LAB 12/13/19 11:16 Completed URINALYSIS C & S IF INDICATED Stat LAB 12/13/19 11:06 Completed 0.9 % Sodium Chloride [Saline Flush] MEDS 12/13/19 11:02 Active 1 syr IVF PRN PRN Ketorolac Tromethamine [Toradol] MEDS 12/13/19 11:02 Discontinued 60 mg IM ONCE STA Sodium Chloride 0.9% [Sodium Chloride] 1,000 ml MEDS 12/13/19 11:02 Discontinued IV BOLUS RESUSCITATION STATUS Routine OTHERS 12/13/19 14:[address] ABD/PEL WO RENAL STONE PROT Stat RADS 12/13/19 11:02 Completed Medications Generic Name Dose Route Start Last Admin Trade Name Freq PRN Reason Stop Dose Admin Meloxicam 15 mg 12/14/19 09:00 Mobic PO DAILY KEVIN Methocarbamol 500 mg 12/13/19 15:00 Robaxin PO TID KEVIN Pravastatin Sodium 40 mg 12/13/19 21:00 Pravachol PO BEDTIME KEVIN Sodium Chloride 1 syr 12/13/19 11:02 Saline Flush IVF PRN PRN To flush IV Discontinued Medications Generic Name Dose Route Start Last Admin Trade Name Freq PRN Reason Stop Dose Admin Sodium Chloride 1,000 mls @ 1,000 mls/hr 12/13/19 11:02 Sodium Chloride IV 12/13/19 12:01 BOLUS STA Ketorolac Tromethamine 60 mg 12/13/19 11:02 12/13/19 11:22 Toradol IM 12/13/19 11:03 60 mg ONCE STA Administration Vital Signs: Temp Pulse Resp BP Pulse Ox 12/13/19 10:35 97.1 F L 47 L 16 165/85 H 94 L Discharge Plan Discharge Patient Disposition: ADMITTED INPATIENT Discharge Problem: Bradycardia, Hypertension, Sciatica of right side ED Provider: ASHLEY HOLLY Condition: Stable Interventions: ED Care Summary Last Done: 12/13/19 14:58 Discharge Last Done: 12/13/19 14:58 Discharge Date/Time: 12/13/19 15:02
[2019-12-13 15:52] VITALS: BMI 30.4
[2019-12-13] MEDS ORDERED: DECADRON 4 MG/ML SDV IM STA (16:18)
[2019-12-13] MEDS ORDERED: NORCO 5-325 PO PRN (16:20)
[2019-12-13] MEDS: SODIUM CHLORIDE 1,000 ML IV SCH (17:22)
[2019-12-13] MEDS: TORADOL IVP PRN (17:40)
[2019-12-13] MEDS ORDERED: ZANAFLEX PO SCH (21:00)
[2019-12-13] MEDS ORDERED: PRAVACHOL PO SCH (21:00)
[2019-12-14 05:10] LABS: HEMATOCRIT 42.2 % (37.0-47.0)
[2019-12-14] MEDS: SODIUM CHLORIDE 1,000 ML IV SCH (06:25)
[2019-12-14] MEDS: TORADOL IVP PRN (08:49)
[2019-12-14] MEDS ORDERED: HYZAAR 50-12.5 MG TAB PO SCH (09:00)
[2019-12-14] MEDS ORDERED: MOBIC PO SCH (09:00)
[2019-12-14 10:37] VITALS: BP 134/76; TEMP 97.8
--- NOTE | 2019-12-14 11:20 | PN ---
DATE OF SERVICE: 12/13/2019 SUBJECTIVE: The patient was seen an examined in the emergency room. The patient was hospitalized with back pain left sided, severe helped by Toradol. Her other problem is systolic blood pressure of more than 200 with diastolic of 100. Heart rate was noted to be 35/36 with blood pressure systolic more than 180. She is practically asymptomatic from severe sinus bradycardia. The patient is in sinus rhythm with no acute changes. She doesn't have any symptoms of CHF or coronary insufficiency. Her condition otherwise is stable. She will be monitored. At the time when I saw her her heart rate was 50 with systolic blood pressure 200. She is on Zebeta beta bear which will be discontinued. Thyroid profile will be checked. Holter monitor and echocardiogram is going to be done later on when her back pain subsides we will do a stress test to see her heart rate responses to exercise. At that time the patient will be monitored. Of course Holter would be applied. Her is in the room and explained about all these findings. She is going to be on some other anti-hypertensive medications because of bradyarrhythmias. The patient is status post back surgery. CONDITION: Stable. TIME SPENT: More than 30 minutes. Plan and coordination of the patient's care discussed in the presence of nurse. MISHA
--- NOTE | 2019-12-14 14:28 | PN ---
DATE OF SERVICE: 12/14/19 DISCHARGE NOTE SUBJECTIVE: 59-year-old white female hospitalized with back pain, left-sided radiculopathy, has DJD of L-spine status post surgery. The patient has been working outside. She has musculoskeletal pain which has responded to IV Toradol and steroid. Other problem the patient has was severe hypertension and bradyarrhythmias. The blood pressure seems to be under control at the present time. She is going to be taken off Zebeta and put on Hyzaar. The patient had an echocardiogram done showing LVH. Otherwise normal echo. REVIEW OF SYSTEMS: CONSTITUTIONAL: No night sweats. No fatigue, malaise, lethargy. No fever or chills. HEENT: Eyes: No visual changes. No eye pain. No eye discharge. ENT: No runny nose. No epistaxis. No sinus pain. No sore throat. No odynophagia. No congestion. RESPIRATORY: No cough, no congestion. No hemoptysis. No shortness of breath. CARDIOVASCULAR: No angina symptoms. No CHF symptoms. No atypical chest pain for CAD. No palpitations. No PND. No orthopnea. GASTROINTESTINAL: No abdominal pain. No nausea or vomiting. No diarrhea or constipation. No hematemesis. No hematochezia. GENITOURINARY: No urgency. No frequency. No dysuria. No hematuria. No obstructive symptoms. No discharge. No pain. No significant abnormal bleeding. MUSCULOSKELETAL: No musculoskeletal pain; no joint swelling. NEUROLOGICAL: No headache. No neck pain. No syncope. No seizures. No dizziness. PSYCHIATRIC: Not anxious. No depression. No suicidal thoughts. No homicidal thoughts. SKIN: No rash. No lesions. No wounds. ENDOCRINE: No unexplained weight loss. No weight gain. HEMATOLOGIC/LYMPHATIC: No anemia. No purpura. No petechiae. No prolonged or excessive bleeding. No palpable lymph nodes. PHYSICAL EXAMINATION: Entirely normal. HEENT: Head normocephalic, atraumatic. Eyes: Extraocular muscles are intact. Pupils are equal, round and reactive to light and accommodation. Ears: No lesions. Nose appeared normal. Throat: No exudate or erythema. NECK: Supple. No JVD, no carotid bruit. No lymphadenopathy or thyromegaly. LUNGS: Clear to auscultation. Percussion note normal. Chest symmetrical. HEART: S1, S2, no S3. No murmurs. No cyanosis or clubbing. No ascites. Pulses: Dorsalis pedis and posterior tibial pulses +1 to +2 bilaterally. ABDOMEN: Soft. Nontender. Bowel sounds active. No CVA tenderness. No mass felt. EXTREMITIES: No edema. Full range of motion of all extremities, equal. NEUROLOGIC: No focal deficit. Cranial nerves II through XII are grossly intact. No headache, no double vision or headache. SKIN: Not dry. Intact. Turgor - normal. LYMPHATIC: No palpable lymph nodes/no lymphedema. MUSCULOSKELETAL: Normal joints with no swelling. Muscle tone is normal. PLAN: 1. Discharge the patient home. 2. The patient will be on Toradol t.i.d. p.r.n. for 10 days and Toradol 50 mg b.i.d. p.r.n. #30 with one refill. 3. Advised to discontinue Mobic. 4. Motrin p.r.n. no more than 600 a day. Advised not to take on empty stomach. 5. Pepcid 20 mg twice a day. 6. Continue Zebeta. 7. Hyzaar 50/12.5 p.o. daily. 8. Pepcid 20 mg twice a day as long as the patient takes Motrin, a nonsteroidal antiinflammatory - discuss side effects like chronic kidney disease, peptic ulcer disease. 9. The patient will have Holter Monitor as an outpatient. Of Note: The patient's heart rate was noted to be low 30's in ER with systolic blood pressure of 180. The patient has been explained about having holter monitor every six months. She is going to have holter monitor before discharge. CONDITION AT TIME OF DISCHARGE: Stable. TIME SPENT: More than 30 minutes. Plan and coordination of the patient's care discussed in the presence of nurse. MISHA
--- NOTE | 2019-12-14 14:29 | PN ---
BILLING 12/13/19 ADMISSION DAY LEVEL 5 12/14/19 DISCHARGE MTDD
--- NOTE | 2019-12-15 11:39 | SSS ---
DATE OF SERVICE: 12/14/2019 REASON FOR CONSULTATION/ADMISSION: Bradycardia and back pain, left. HISTORY OF PRESENT ILLNESS: The patient presented to the ER with pain to the right lower back for 5 days. He also reported low pulse rate since starting new medication last week (Robaxin). REVIEW OF SYSTEMS: CONSTITUTIONAL: No night sweats. No fatigue, malaise, lethargy. No fever or chills. HEENT: Eyes: No visual changes. No eye pain. No eye discharge. ENT: No runny nose. No epistaxis. No sinus pain. No sore throat. No odynophagia. No ear pain. No congestion. RESPIRATORY: No cough, no congestion. No hemoptysis. No shortness of breath. CARDIOVASCULAR: No angina symptoms. No CHF symptoms. No atypical chest pain for CAD. No palpitations. No orthopnea. GASTROINTESTINAL: No abdominal pain. No nausea or vomiting. No diarrhea or constipation. No hematemesis. No hematochezia. GENITOURINARY: No dysuria. No hematuria. No obstructive symptoms. No discharge. No pain. No significant abnormal bleeding. MUSCULOSKELETAL: No musculoskeletal pain. No joint swelling. Reported pain left side of back. No radiation to left lower extremity. No numbness or tingling. Denies any injury. NEUROLOGICAL: Awake, alert, oriented to time, place and person. No headache. No neck pain. No syncope. No seizures. No dizziness. PSYCHIATRIC: Not anxious. No depression. No suicidal thoughts. No homicidal thoughts. SKIN: No rash. No lesions. No wounds. ENDOCRINE: No unexplained weight loss. No weight gain. HEMATOLOGIC/LYMPHATIC: No anemia. No purpura. No petechiae. No prolonged or excessive bleeding. No palpable lymph nodes. PAST HISTORY: Hypertension Dyslipidemia Degenerative changes to L4 and L5. Hysterectomy Hemorrhoidectomy Endoscopy Colonoscopy Diverticulosis Clavicle fracture (2014) PERSONAL/FAMILY HISTORY/SOCIAL HISTORY: The patient is and lives with spouse. Independent of ADL's. Non-smoker. 2 children (adult). Mother had hypertension, breast cancer and pacemaker. Father had diabetes mellitus and stroke. PHYSICAL EXAMINATION: GENERAL: The patient is a female age [age] years old. height 5'8", weight 200. BMI 30.4. VITAL SIGNS: Temperature 98.5, pulse 50, respiratory rate 18, blood pressure 157/81 with oxygen saturation 94%. HEENT: Head normocephalic, atraumatic. Eyes: Extraocular muscles are intact. Pupils are equal, round and reactive to light and accommodation. Ears: No lesions. Nose appeared normal. Throat: No exudate or erythema. NECK: Supple. No JVD, no carotid bruit. No lymphadenopathy or thyromegaly. LUNGS: Clear to auscultation. Percussion note normal. Chest symmetrical. HEART: S1, S2, no S3. No murmurs. No cyanosis or clubbing. No ascites. Pulses: Dorsalis pedis and posterior tibial pulses +1 to +2 bilaterally. ABDOMEN: Soft. Nontender. Bowel sounds active. No CVA tenderness. No mass felt. EXTREMITIES: No edema. Full range of motion of all extremities, equal. NEUROLOGIC: No focal deficit. Cranial nerves II through XII are grossly intact. No headache, no double vision or headache. SKIN: Not dry. Intact. Turgor - normal. LYMPHATIC: No palpable lymph nodes/no lymphedema. MUSCULOSKELETAL: Normal joints with no swelling. Muscle tone is normal. Old/present records reviewed: Yes. Office records reviewed: Yes ALLERGIES: No known allergies MEDICATIONS: Robaxin Mobic Pravastatin Zebeta LABS/EKG'S/X-RAY/ECHO/ABG: WBC 6.01, hgb 15.3, hct 44.6, plt count 182. Sodium 136.2, potassium 4.69, Chloride 103.1, bicarb 25.5, BUN 17.6, creatinine 1.12 and glucose 105.7. PROBNP 269.00. EKG bradycardia 47, CT abdomen and pelvis: degenerative discs L4-L5, Diverticulosis and trace bilateral pleural effusion. U/A negative. PROGRESS NOTES: See EMR. DIAGNOSES: 1. Left paraspinal pain with muscle spasms 2. DJD spine 3. Bradycardia 4. Status post L spine surgery 5. Hypertension 6. Dyslipidemia 7. Obese 8. LVH per ECHO RECOMMENDATIONS/PLAN: 1. Appointment 12/24/2019 at 1:15pm 2. Stop Zebeta 3. Stop Robaxin 4. Stop Mobic 5. Back exercises 6. RX Hyzaar, Toradol and Tramadol 7. Advised to lose weight, Diet discussed TIME SPENT: More than 70 minutes. MTDD
== END 2019-12-14 12:45 | disposition home or self-care (01) ==
LOC: ED 10:34 → MEDSURG B 10:34
PROVIDERS: ADMIT Internal Medicine; ATTEND Internal Medicine